=== PATIENT | female | born 1980 | race Caucasian/White ===

== ENCOUNTER 2020-04-01 12:16 | Emergency (ER) | payer BC, OTHER ==
[~2020-04-01] VITALS: Ht 172.7 cm; Wt 79.4 kg
[2020-04-01] MEDS ORDERED: LEXAPRO 10 MG T10 M2 PO (12:26)
[2020-04-01 13:04] LABS: ABSOLUTE NEUTROPHILS 7.1 thou/uL (1.4-8.2); BASOPHILS 0.5 % (0.0-2.0); EOSINOPHILS 0.5 % (0.0-3.0); HEMATOCRIT 41.5 % (37.0-47.0); HEMOGLOBIN 14.2 gm/dL (12.0-15.0); LYMPHOCYTES 13.1 % (24.0-44.0); MCH 32.4 pg (26.0-34.0); MCHC 34.2 g/dL (28.0-37.0); MCV 94.8 fL (80.0-100.0); MONOCYTES 2.6 % (1.0-8.0); PLATELET COUNT 226 thou/uL (150-400); POLYS 83.3 % (36.0-66.0); RBC 4.38 mil/uL (4.20-5.00); RDW 12.7 % (10.5-14.5); WBC 8.5 thou/uL (4.0-11.0)
[2020-04-01 13:06] LABS: ANION GAP 11 mmol/L (7-16); BUN 8 mg/dL (7-18); CHLORIDE 105 mmol/L (98-107); CO2 26 mmol/L (21-32); CREATININE 0.9 mg/dL (0.6-1.0); GLUCOSE 91 mg/dL (74-106); POTASSIUM 3.7 mmol/L (3.5-5.1); SODIUM 142 mmol/L (136-145)
[2020-04-01 13:16] LABS: ALBUMIN 4.2 g/dL (3.4-5.0); SGOT 25 U/L (15-37); SGPT 15 U/L (30-65); TOTAL BILIRUBIN 1.2 mg/dL (0.2-1.0); TOTAL PROTEIN 8.2 g/dL (6.4-8.2); TROPONIN-I <0.06 ng/mL (<0.06)
--- NOTE | 2020-04-01 13:19 | EKG ---
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: PATRICIA : 1980 Requested By: William Gonzalez Order Number: [id number] MD: Facundo Toscano Measurements Intervals [place] Rate: 63 P: 76 MI: 131 QRS: 63 QRSD: 97 T: 39 QT: 410 QTc: 420 Interpretive Statements Sinus rhythm Ventricular premature complex Probable left atrial enlargement No previous ECG available for comparison Electronically Signed On 04-01-2020 13:19:41 [employer] by Facundo Toscano [email or web address] <ELECTRONICALLY SIGNED> By: Facundo Toscano MD, FACC 04/01/20 1319 1220 1220 Facundo Toscano MD, FACC /EPI
[2020-04-01] MEDS ORDERED: METOPROLOL SUCC25 M1 PO (17:16)
[2020-04-01 17:27] VITALS: BP 128/72
== END 2020-04-01 17:00 | disposition home or self-care (01) ==
LOC: ER 12:16
PROVIDERS: Emergency Medicine
DX: R07.89 Other chest pain (principal); R00.2 Palpitations; Z79.899 Other long term (current) drug therapy

== ENCOUNTER → 2020-04-14 | Outpatient (CLI) | payer BC, OTHER ==
[~2020-04-14] MED LIST: LEXAPRO 10 MG T10 M2 PO; METOPROLOL SUCC25 M1 PO
== END ==
LOC: SPEC 08:40 → SJCVCIMAG 15:03 → SPEC 15:03
PROVIDERS: ATTEND Internal Medicine Cardiovascular Disease
DX: I34.0 Nonrheumatic mitral (valve) insufficiency (principal); R00.1 Bradycardia, unspecified